=== PATIENT | female | born 1985 | race African-American/Black ===

== ENCOUNTER 2016-11-10 19:16 | Inpatient (IN) | payer MEDICARE, MEDICAID ==
[2016-11-10] MEDS ORDERED: NIFEDIPINE 30 MG TAB.ER.24 PO ONE (20:30)
[2016-11-10 21:03] LABS: HEMOGLOBIN 12.9 g/dL (12.0-15.5); HGB HCT DIFFERENCE -0.3; MEAN CORPUSCULAR HEMOGLOBIN 26.1 pg (27.0-33.4); MEAN CORPUSCULAR VOLUME 79 fl (80-97); RED BLOOD COUNT 4.93 10^6/uL (3.72-5.28); RED CELL DISTRIBUTION WIDTH 15.5 % (11.5-14.0)
[2016-11-10] MEDS ORDERED: DEXTROSE 50%-WATER SYRINGE 12.5 GM/25 ML DOSE IV PRN (21:09)
[2016-11-10] MEDS ORDERED: GLUCAGON,HUMAN RECOMB 1 MG INJ IM PRN (21:09)
[2016-11-10] MEDS ORDERED: DEXTROSE 40% GEL 15 GM TUBE PO PRN (21:09)
[2016-11-10] MEDS ORDERED: DEXTROSE 50%-WATER SYRINGE 25 GM/50 ML DOSE IV PRN (21:09)
[2016-11-10] MEDS ORDERED: DEXTROSE 40% GEL 15 GM TUBE X 2 PO PRN (21:09)
[2016-11-10 21:20] LABS: ALANINE AMINOTRANSFERASE 32 U/L (9-52); ALBUMIN 4.4 g/dL (3.5-5.0); ALKALINE PHOSPHATASE 71 U/L (38-126); ANION GAP 14 (5-19); ASPARTATE AMINO TRANSFERASE 17 U/L (14-36); BILIRUBIN,DIRECT 0.3 mg/dL (0.0-0.4); BILIRUBIN,TOTAL 0.4 mg/dL (0.2-1.3); BLOOD UREA NITROGEN 8 mg/dL (7-20); CALCIUM 10.4 mg/dL (8.4-10.2); CARBON DIOXIDE 22 mmol/L (22-30); CHLORIDE 102 mmol/L (98-107); CREATININE RESULT 0.45 mg/dL (0.52-1.25); GLUCOSE 161 mg/dL (75-110); POTASSIUM 4.3 mmol/L (3.6-5.0); SODIUM 138.1 mmol/L (137-145); TOTAL PROTEIN 7.9 g/dL (6.3-8.2)
[2016-11-10] MEDS: INSULIN GLARGINE,HUM.REC.ANLOG 1,000 UNIT/10 ML UNIT SUBCUT SCH (22:02)
--- NOTE | 2016-11-11 08:13 | EKG REPORT ---
SEVERITY:- NORMAL ECG - SINUS RHYTHM : Confirmed by: Zain Estes MD 11-Nov-2016 08:12:55
--- NOTE | 2016-11-11 09:50 | PDOC PROGRESS REPORT ---
Subjective Subjective:: Pt reports feeling well No vaginal bleeding Physical Exam - Physical Exam Vital Signs: Temp Pulse Resp BP Pulse Ox 98.7 F 93 16 122/80 100 11/11/16 07:31 11/11/16 07:31 11/11/16 07:31 11/11/16 07:31 11/11/16 07:31 Intake & Output 11/10/16 11/11/16 11/12/16 06:59 06:59 06:59 Weight 74.4 kg General appearance: PRESENT: no acute distress, cooperative, well-developed Result Laboratory Results: 11/10/16 20:39 11/10/16 20:39 11/10/16 11/10/16 11/10/16 20:39 20:39 20:39 WBC 6.0 RBC 4.93 Hgb 12.9 Hct 39.0 MCV 79 L MCH 26.1 L MCHC 33.0 RDW 15.5 H Plt Count 391 Sodium 138.1 Potassium 4.3 Chloride 102 Carbon Dioxide 22 Anion Gap 14 BUN 8 Creatinine 0.45 L Est GFR ( Amer) > 60 Est GFR (Non-Af Amer) > 60 Glucose 161 H Calcium 10.4 H Total Bilirubin 0.4 AST 17 ALT 32 Alkaline Phosphatase 71 Total Protein 7.9 Albumin 4.4 TSH 1.40 Assessment & Plan - Diagnosis (1) Diabetes mellitus Qualifiers: Diabetes mellitus type: type 1 Diabetes mellitus complication status: without complication Qualified Code(s): E10.9 - Type 1 diabetes mellitus without complications Is this a current diagnosis for this admission?: Yes (2) Hypertension Qualifiers: Hypertension type: essential hypertension Qualified Code(s): I10 - Essential (primary) hypertension Is this a current diagnosis for this admission?: Yes (3) Qualifiers: Weeks of gestation: 10 weeks Qualified Code(s): Z3A.10 - 10 weeks gestation of Is this a current diagnosis for this admission?: Yes - Time Time Spent with patient: 15-24 minutes Medications reviewed and adjusted accordingly: Yes Anticipated discharge: Home Within: within 48 hours - Will await glucose reading today and make insulin changes this evening
[2016-11-11] MEDS: INSULIN GLARGINE,HUM.REC.ANLOG 1,000 UNIT/10 ML UNIT SUBCUT SCH ×2 (09:53→21:51)
[2016-11-11] MEDS: NIFEDIPINE 30 MG TAB.ER.24 PO SCH (09:54)
[2016-11-11] MEDS: PRENATAL VITAMIN W-O CA NO5/FE FUMARATE/FA CAPSULE PO SCH (09:54)
[2016-11-11] MEDS: INSULIN LISPRO 100 UNIT/ML 3 ML VIAL SUBCUT PRN ×4 (11:01→19:44)
[2016-11-11] MEDS ORDERED: ACETAMINOPHEN 325 MG TABLET ONE (13:40)
[2016-11-11] MEDS ORDERED: ACETAMINOPHEN 325 MG TABLET PO PRN (13:53)
[2016-11-11] MEDS ORDERED: INSULIN GLARGINE,HUM.REC.ANLOG 1,000 UNIT/10 ML UNIT SUBCUT SCH (22:00)
[2016-11-12] MEDS: INSULIN GLARGINE,HUM.REC.ANLOG 1,000 UNIT/10 ML UNIT SUBCUT SCH ×2 (09:30→22:14)
[2016-11-12] MEDS: NIFEDIPINE 30 MG TAB.ER.24 PO SCH (09:31)
[2016-11-12] MEDS: PRENATAL VITAMIN W-O CA NO5/FE FUMARATE/FA CAPSULE PO SCH (09:31)
[2016-11-12] MEDS: INSULIN LISPRO 100 UNIT/ML 3 ML VIAL SUBCUT PRN ×3 (10:53→19:39)
--- NOTE | 2016-11-12 14:34 | PDOC CONSULTATION ---
Consultation Consult Date: 11/12/16 Attending physician:: SHAHEEN OSMAN Consult reason:: help with hyperglycemia History of Present Illness Admission Date/PCP: 11/10/16 19:16 EDENILSON TORO, History of Present Illness: PATODMITRI LUNA is a 31 year old female with a hx of htn and dm who was brought in for improved glucose control. Patient denies any polyuria, polydipsia , and admits to polyphagia but is also approximately 10 weeks . Patient was reported to have a hemoglobin A1c of greater than 14. Patient reports she has been a diabetic since 2011 but has not taken medication for some time. Patient was eating lunch when I see her. She is doing well and has no complaints. Past Medical History Cardiac Medical History: Reports: Hypertension Denies: Pulmonary Embolism, Heart Murmur Pulmonary Medical History: Denies: Asthma, Sleep Apnea, Tuberculosis Neurological Medical History: Denies: Seizures Endocrine Medical History: Reports: Diabetes Mellitus Type 2 Denies: Diabetes Mellitus Type 1, Hyperthyroidism, Hypothyroidism Malignancy Medical History: Denies: Breast Cancer, Cervical Cancer, Ovarian Cancer GI Medical History: Denies: Gastroesophageal Reflux Disease, Hiatal Hernia Musculoskeltal Medical History: Denies: Fibromyalgia Psychiatric Medical History: Denies: Bipolar Disorder, Depression, Post Traumatic Stress Disorder Hematology: Denies: Anemia, Hemophilia, Sickle Cell Disease Infectious Medical History: Denies: HIV Past Surgical History Past Surgical History: Reports: Section Social History Smoking Status: Former Smoker Last Time Smoked: 2009 Frequency of Alcohol Use: None Hx Recreational Drug Use: No Drugs: None Hx Prescription Drug Abuse: No - Advance Directive Resuscitation Status: Full Code Surrogate healthcare decision maker:: Aurora Sharma, sister Family History Family History: DM, Hypertension Parental Family History Reviewed: Yes Children Family History Reviewed: Yes Sibling(s) Family History Reviewed.: Yes Medication/Allergy Home Medications: Vit#96/Ferrous Fum/FA [ Tablet] 1 tab PO DAILY 03/15/14 Lisinopril/Hydrochlorothiazide [Lisinopril-Hctz 20-25 mg Tab] 1 each PO DAILY # 30 tablet 03/28/14 Insulin Glargine,Hum.rec.anlog [Lantus Insulin 100 Unit/mL] 45 units SUBCUT BID 11/10/16 Allergies/Adverse Reactions: No Known Allergies Allergy (Verified 09/11/11 13:08) Review of Systems Constitutional: ABSENT: chills, fever(s), headache(s), weight gain, weight loss Eyes: ABSENT: visual disturbances Ears: ABSENT: hearing changes Cardiovascular: ABSENT: chest pain, dyspnea on exertion, edema, orthropnea, palpitations Respiratory: ABSENT: cough, hemoptysis Gastrointestinal: ABSENT: abdominal pain, constipation, diarrhea, hematemesis, hematochezia, nausea, vomiting Genitourinary: ABSENT: dysuria, hematuria Musculoskeletal: ABSENT: joint swelling Integumentary: ABSENT: rash, wounds Neurological: ABSENT: abnormal gait, abnormal speech, confusion, dizziness, focal weakness, syncope Psychiatric: ABSENT: anxiety, depression, homidical ideation, suicidal ideation Endocrine: ABSENT: cold intolerance, heat intolerance, polydipsia, polyuria Hematologic/Lymphatic: ABSENT: easy bleeding, easy bruising Physical Exam Vital Signs: Temp Pulse Resp BP Pulse Ox 97.4 F 90 16 116/78 99 11/12/16 11:05 11/12/16 11:05 11/12/16 11:05 11/12/16 11:05 11/12/16 11:05 Intake & Output 11/11/16 11/12/16 11/13/16 06:59 06:59 06:59 Intake Total 300 450 Balance 300 450 Weight 74.4 kg General appearance: PRESENT: no acute distress, well-developed, well-nourished Head exam: PRESENT: atraumatic, normocephalic Eye exam: PRESENT: conjunctiva pink, EOMI, PERRLA. ABSENT: scleral icterus Ear exam: PRESENT: normal external ear exam Mouth exam: PRESENT: moist, tongue midline Neck exam: ABSENT: JVD, lymphadenopathy, thyromegaly, tracheal deviation Respiratory exam: PRESENT: clear to auscultation rocky. ABSENT: rales, rhonchi, wheezes Cardiovascular exam: PRESENT: RRR, +S1, +S2. ABSENT: diastolic murmur, gallop, rubs, systolic murmur, tachycardia Pulses: PRESENT: normal carotid pulses Vascular exam: PRESENT: normal capillary refill GI/Abdominal exam: PRESENT: normal bowel sounds, soft. ABSENT: distended, firm , guarding, mass, Gasca's sign, organolmegaly, rebound, rigid, tenderness Rectal exam: PRESENT: deferred Extremities exam: PRESENT: full ROM. ABSENT: calf tenderness, clubbing, pedal edema Neurological exam: PRESENT: alert, awake, oriented to person, oriented to place , oriented to time, oriented to situation, CN II-XII grossly intact. ABSENT: motor sensory deficit Psychiatric exam: PRESENT: appropriate affect, normal mood. ABSENT: homicidal ideation, suicidal ideation Skin exam: PRESENT: dry, intact, warm. ABSENT: cyanosis, rash Results Laboratory Results: 11/10/16 20:39 11/10/16 20:39 11/10/16 11/10/16 11/11/16 20:39 20:39 15:14 Hgb 12.9 MCV 79 L POC Glucose 272 H TSH 1.40 11/11/16 11/11/16 11/12/16 17:00 18:55 06:28 Hgb MCV POC Glucose 199 H 231 H 100 TSH 11/12/16 11/12/16 10:40 11:53 Hgb MCV POC Glucose 183 H 148 H TSH Assessment & Plan - Diagnosis (1) Diabetes mellitus Qualifiers: Diabetes mellitus type: type 2 Diabetes mellitus complication status: without complication Diabetes mellitus longterm insulin use: with longterm use Qualified Code(s): E11.9 - Type 2 diabetes mellitus without complications ; Z79.4 - [facility] (current) use of insulin Is this a current diagnosis for this admission?: Yes Plan: Patient is a type II diabetic with history of use of insulin. At this time, I defer to the A1c goal to the LASTING ROOM SUPERVISOR team. But if permitted in this phase of , patient may benefit from the addition of metformin 500 mg p.o. twice daily. Additionally, patient would likely benefit from a carb controlled diet, but again due to her considerations, and defer the ultimate decision of her diet to her primary team. Agree with the current Lantus regimen, as patient's fasting blood sugar was 100 this morning, and this appears to be much improved. Dietary has been consulted for this patient. (2) Hypertension Qualifiers: Hypertension type: essential hypertension Qualified Code(s): I10 - Essential (primary) hypertension Is this a current diagnosis for this admission?: Yes Plan: 2000 mg sodium restriction, avoid caffeinated beverages. Patient's blood pressure is currently well controlled on Procardia 60 mg p.o. daily. Agree with this. Defer ultimate control of her hypertension to the primary OB team, particularly as her gestation progresses for fears of eclampsia and preeclampsia. (3) Qualifiers: Weeks of gestation: 10 weeks Qualified Code(s): Z3A.10 - 10 weeks gestation of Is this a current diagnosis for this admission?: Yes Plan: Patient is on a vitamin. Defer expectant care to the primary team. - Time Time Spent: 30 to 50 Minutes Medications reviewed and adjusted accordingly: Yes Anticipated discharge: Home - Plan Summary Plan Summary: Overall, agree with current management from primary team. Appreciate this interesting consult and will sign off and available for reconsultation if necessary.
--- NOTE | 2016-11-12 15:46 | RADIOLOGY REPORT (SQ) ---
EXAM DESCRIPTION: U/S [id number] TRNABD 1GES W/ODOP COMPLETED DATE/TIME: 11/10/2016 11:22 pm REASON FOR STUDY: Viability COMPARISON: None. TECHNIQUE: Transabdominal static and realtime grayscale images acquired of the pelvis. Additional se lected spectral and color Doppler images recorded. All images stored on PACs. bHCG: Not available LIMITATIONS: None. FINDINGS: FETUS: Living intrauterine . EGA: 10 weeks 2 days GREGORIO: 06/06/2017 FHR: 178 beats per minute. SUBCHORIONIC BLEED: No SIZE OF BLEED: Not applicable. UTERUS: No masses. No anomalies. Uterus is 10.5 x 7.6 x 7.1 cm in length. CERVICAL LENGTH: Not well seen Closed. RIGHT ADNEXA: Not well seen due to adnexal bowel gas. Right ovary not visualized LEFT ADNEXA: Normal ovary with normal vascular flow. Left ovary 4.9 x 3.4 x 2.9 cm in size, with a 2 .9 x 2.8 cm simple cyst, possibly the corpus luteum. No adnexal free fluid.No adnexal masses. FREE FLUID: None. OTHER: No other significant finding. IMPRESSION: LIVING INTRAUTERINE . EGA 10 weeks 2 days, embryo heart rate 178 beats per minute Trimester of : First - 0 to 13 weeks. TECHNICAL DOCUMENTATION: JOB ID: [id number] [employer]- All Rights Reserved
--- NOTE | 2016-11-12 16:57 | PDOC PROGRESS REPORT ---
Subjective Progress Note for:: 11/12/16 Subjective:: doing well. reports eating both rice and corn for lunch. Dietary at desk and will be counseling pt on proper diabetic diet. Denies REGALADO/blurry vision/RUQ pain. Denies polyuria/polydypsia. Physical Exam - Physical Exam Vital Signs: Temp Pulse Resp BP Pulse Ox 97.4 F 90 16 116/78 99 11/12/16 11:05 11/12/16 11:05 11/12/16 11:05 11/12/16 11:05 11/12/16 11:05 Intake & Output 11/11/16 11/12/16 11/13/16 06:59 06:59 06:59 Intake Total 300 1050 Balance 300 1050 Weight 74.4 kg General appearance: PRESENT: no acute distress, well-developed, well-nourished Respiratory exam: PRESENT: clear to auscultation rocky, symmetrical, unlabored. ABSENT: rales, retraction Cardiovascular exam: PRESENT: RRR. ABSENT: diastolic murmur, rubs, systolic murmur Vascular exam: PRESENT: normal capillary refill GI/Abdominal exam: PRESENT: normal bowel sounds, soft. ABSENT: distended, guarding, mass, organolmegaly, rebound, tenderness Rectal exam: PRESENT: deferred Extremities exam: PRESENT: full ROM. ABSENT: calf tenderness, clubbing, pedal edema Musculoskeletal exam: PRESENT: ambulatory Neurological exam: PRESENT: alert, awake, oriented to person, oriented to place , oriented to time, oriented to situation, CN II-XII grossly intact. ABSENT: motor sensory deficit Psychiatric exam: PRESENT: appropriate affect, normal mood. ABSENT: homicidal ideation, suicidal ideation Skin exam: PRESENT: abrasion Result Laboratory Results: 11/10/16 20:39 11/10/16 20:39 Impressions: Obstetrics Ultrasound 11/10/16 00:00 IMPRESSION: LIVING INTRAUTERINE . EGA 10 weeks 2 days, embryo heart rate 178 beats per minute Trimester of : First - 0 to 13 weeks. 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 Reports that a provider at the [facility] told her to stop the insulin approx 4wks ago. However, Hb A1c was 14 in the office on 11/01/2016 which indicates likely poor control even prior to this. Due to poor control of Accuchecks Dr. Cordoba increased her Lantus to 50 units BID late last evening which improved her fasting accucheck this am to 100. However this is still not goal. REview of accuchecks and orders reveals continued very very poor control of postparandials and continued significant need for sliding scale coverage with insulin in addition to her scheduled lantus dosing. Dr. Mcneil consulted this am since pt is very poorly controlled and Lantus had to be increased. Very Very much appreciate assistance with this patient. Hb A1c of 14 in is associated with , Miscarriage, Significant congenital malformations including cardiac anomalies. It is imperative that improved control be achieved soon to help in prevention of these complications. Therefore, it is certainly not advisable to discharge patient at this time. Also review of orders reveals low sodium diet - However, this diet has too many carbs and diet changed today to Low Sodium with 1800 ADA diet. Trash Collector consult also requested to help with patient education. Goal for accuchecks in is: fasting less than 90 2 hr PP less than 120 Plan for continued adjustment today: Diet changed to diabetic diet Dr. Mcneil Consulted with Hospitalist service Continue Lantus and SSI, Adjust lantus as needed Patient education Start Oral Hypoglycemic - Glyburide 2.5mg po BID (will likely need to be increased for improved control) Reviewed with pt that do not expect tight control of Accuchecks prior to discharge but definitely need improved control to prevent some of the devastating effects on the fetus as noted above. FHT daily. Will take US over later to check FHTs. Last FHTs done with US on at admission. Today fasting 100 2hr pp breakfast 183, 2 units SSI given and repeat 143 2hr pp lunch 234, 5 units SSI given Will need MFM consult with ECHO after discharge As noted this is certainly too far away from control and several adjustments today to help with improved control. If improved control tomorrow or Tuesday may be able to discharge then. In short, it is NOT medically recommended from an obstetric standpoint to discharge this patient at this time. (2) Hypertension Qualifiers: Hypertension type: essential hypertension Qualified Code(s): I10 - Essential (primary) hypertension Is this a current diagnosis for this admission?: Yes Plan: Pt is currently on procardia XL 60mg daily with significant improvement in her BPs. However, review of records notes no baseline labs done: CBC done, CMP to be repeated with uric acid, LDH 24 hr UTP to be started - for baseline value. Reviewed risk of PreE later in with patient and need for baseline value Plan for day: Labs and continue with Procardia XL 60mg po daily Significant improvement in control no medication adjustment at this time. (3) Qualifiers: Weeks of gestation: 10 weeks Qualified Code(s): Z3A.10 - 10 weeks gestation of Is this a current diagnosis for this admission?: Yes Plan: LMP 08/30/2016 and ED 06/06/2017 US at 8+6ega on 11/01/2016 - - - GREGORIO 06/07/2017 Final GREGORIO 06/06/2017 Current ega is 10+4ega, 1st trimester (4) Delivery by elective caesarean section Is this a current diagnosis for this admission?: Yes Plan: H/o C/S x 2. needs Repeat LTCS at the time delivery is required. - Time Time Spent with patient: 35 or more minutes Critical Time spent with patient: Less than 15 minutes Medications reviewed and adjusted accordingly: Yes Anticipated discharge: Home Within: within 48 hours - Inpatient Certification Based on my medical assessment, after consideration of the patient's comorbidities, presenting symptoms, or acuity I expect that the services needed warrant INPATIENT care.: Yes I certify that my determination is in accordance with my understanding of Medicare's requirements for reasonable and necessary INPATIENT services [42 CFR 412.3e].: Yes Medical Necessity: Failure to Improve With Outpatient Therapy, Significant Comorbidiites Make Outpatient Treatment Too Risky, Need Close Monitoring Due to Risk of Patient Decompensation Post Hospital Care: D/C Sawsmith Documentation - Plan Summary Plan Summary: Needs service planner as patient has significant social issues which complicate her care including impending court dates.
[2016-11-12] MEDS ORDERED: GLYBURIDE 2.5 MG TABLET PO SCH (17:00)
[2016-11-12 17:05] LABS: ALANINE AMINOTRANSFERASE 32 U/L (9-52); ALBUMIN 4.3 g/dL (3.5-5.0); ALKALINE PHOSPHATASE 64 U/L (38-126); ANION GAP 14 (5-19); ASPARTATE AMINO TRANSFERASE 18 U/L (14-36); BILIRUBIN,DIRECT 0.4 mg/dL (0.0-0.4); BILIRUBIN,TOTAL 0.5 mg/dL (0.2-1.3); BLOOD UREA NITROGEN 16 mg/dL (7-20); CALCIUM 10.2 mg/dL (8.4-10.2); CARBON DIOXIDE 19 mmol/L (22-30); CHLORIDE 99 mmol/L (98-107); CREATININE RESULT 0.69 mg/dL (0.52-1.25); GLUCOSE 210 mg/dL (75-110); POTASSIUM 4.4 mmol/L (3.6-5.0); SODIUM 132.2 mmol/L (137-145); TOTAL PROTEIN 7.8 g/dL (6.3-8.2); URIC ACID 3.5 mg/dL (2.5-6.2)
[2016-11-13] MEDS ORDERED: GLYBURIDE 2.5 MG TABLET PO SCH ×2 (08:00→22:00)
[2016-11-13] MEDS: NIFEDIPINE 30 MG TAB.ER.24 PO SCH (09:31)
[2016-11-13] MEDS: PRENATAL VITAMIN W-O CA NO5/FE FUMARATE/FA CAPSULE PO SCH (09:32)
--- NOTE | 2016-11-13 10:33 | PDOC DISCHARGE SUMMARY ---
General - Admit/Disc Date/PCP Admission Date/Primary Care Provider: The pt was admitted to begin insulin during her . She stated that she had stopped her medication when she found out that she was and had very high levels in our office. Discharge Date: 11/13/16 - Additional Information Resuscitation Status: Full Code Discharge Diet: Diabetic Discharge Activity: Balance Activity w/Rest, Slowly Increase Activity Home Medications: Vit#96/Ferrous Fum/FA [ Tablet] 1 tab PO DAILY 03/15/14 Glyburide [Diabeta 2.5 mg Tablet] 2.5 mg PO QAM #30 tablet 11/13/16 Glyburide [Diabeta 2.5 mg Tablet] 2.5 mg PO QHS #30 tablet 11/13/16 Insulin Glargine,Hum.rec.anlog [Lantus Insulin 100 Unit/1 ml 10 ml] 50 unit SUBCUT Q12 #60 unit 11/13/16 Nifedipine [Procardia XL 30 mg Tablet] 60 mg PO DAILY #30 tab.er.24 11/13/16 History of Present Illness Patient complains of: High blood sugars at home. History of Present Illness: LUCY LUNA is a 31 year old female Hospital Course Hospital Course: She was admitted and started on lantus insulin as well as an oral agent. Her sugars now look much better and she has received diabetic and dietary teaching. She is now ready to go home. Physical Exam - Physical Exam Vital Signs: Temp Pulse Resp BP Pulse Ox 98.4 F 68 18 125/89 H 99 11/13/16 07:50 11/13/16 07:50 11/13/16 07:50 11/13/16 07:50 11/13/16 07:50 Intake & Output 11/12/16 11/13/16 11/14/16 06:59 06:59 06:59 Intake Total 300 1350 Balance 300 1350 General appearance: PRESENT: no acute distress, well-developed, well-nourished Result Laboratory Results: 11/10/16 20:39 11/12/16 16:30 11/12/16 16:30 Sodium 132.2 L Potassium 4.4 Chloride 99 Carbon Dioxide 19 L Anion Gap 14 BUN 16 Creatinine 0.69 Est GFR ( Amer) > 60 Est GFR (Non-Af Amer) > 60 Glucose 210 H Uric Acid 3.5 Calcium 10.2 Total Bilirubin 0.5 AST 18 ALT 32 Alkaline Phosphatase 64 Total Protein 7.8 Albumin 4.3 Impressions: Obstetrics Ultrasound 11/10/16 00:00 IMPRESSION: LIVING INTRAUTERINE . EGA 10 weeks 2 days, embryo heart rate 178 beats per minute Trimester of : First - 0 to 13 weeks. Plan Discharge Plan: She will be sent home on the diabetes and bp meds as in the hospital. She has followup with high school music teacher on the . They will likely change her doses to their practice patterns. Her blood sugars are much improved. Time Spent: Greater than 30 Minutes
[2016-11-13] MEDS: INSULIN GLARGINE,HUM.REC.ANLOG 1,000 UNIT/10 ML UNIT SUBCUT SCH (11:08)
[2016-11-13] MEDS: INSULIN LISPRO 100 UNIT/ML 3 ML VIAL SUBCUT PRN (20:00)
[2016-11-13 20:06] VITALS: BP 137/88
== END 2016-11-13 21:04 | disposition home or self-care (01) | DRG 781 ==
LOC: 2N 19:16
PROVIDERS: ADMIT Specialist; ATTEND Specialist
DX: O24.111 Pre-existing type 2 diabetes mellitus, in pregnancy, first trimester (principal); O10.011 Pre-existing essential hypertension complicating pregnancy, first trimester; E11.9 Type 2 diabetes mellitus without complications; O34.211 Maternal care for low transverse scar from previous cesarean delivery; Z79.4 Long term (current) use of insulin; Z87.891 Personal history of nicotine dependence; Z83.3 Family history of diabetes mellitus; Z82.49 Family history of ischemic heart disease and other diseases of the circulatory system; Z91.14 Patient's other noncompliance with medication regimen; Z3A.10 10 weeks gestation of pregnancy
CPT/HCPCS: 36415; 76801; 80053; 82962; 83615; 84156; 84443; 84550; 85027; 93005; 93010; J1815; J3490

== ENCOUNTER 2017-02-20 02:46 | Outpatient (CLI) | payer MEDICARE, MEDICAID ==
[2017-02-20 03:34] LABS: APPEARANCE,URINE CLEAR; BILIRUBIN,URINE NEGATIVE (NEGATIVE); GLUCOSE, URINE >=500 mg/dL (NEGATIVE); KETONES,URINE 20 mg/dL (NEGATIVE); LEUKOCYTE ESTERASE,URINE NEGATIVE (NEGATIVE); NITRITE,URINE NEGATIVE (NEGATIVE); PROTEIN,URINE NEGATIVE (NEGATIVE); URINE SPECIFIC GRAVITY 1.029; UROBILINOGEN,URINE NEGATIVE mg/dL (<2.0)
[2017-02-20 04:28] LABS: URINE BARBITURATES SCREEN NEGATIVE; URINE METHADONE SCREEN NEGATIVE; URINE OPIATES LOW NEGATIVE; URINE PHENCYCLIDINE SCREEN NEGATIVE
== END 2017-02-20 04:35 | disposition home or self-care (01) ==
LOC: LC 02:46
PROVIDERS: ATTEND Obstetrics & Gynecology
PROC: 4A1HXCZ Monitoring of Products of Conception, Cardiac Rate, External Approach (ICD-10-PCS; principal; 2017-02-20)
DX: O47.02 False labor before 37 completed weeks of gestation, second trimester (principal); Z3A.24 24 weeks gestation of pregnancy
CPT/HCPCS: 80307; 81001

== ENCOUNTER 2017-05-09 12:19 | Outpatient (CLI) | payer MEDICARE, MEDICAID ==
[2017-05-09 13:27] LABS: AMORPHOUS SEDIMENT,URINE TRACE /HPF; APPEARANCE,URINE TURBID; BILIRUBIN,URINE NEGATIVE (NEGATIVE); COLOR,URINE YELLOW; GLUCOSE, URINE 50 mg/dL (NEGATIVE); KETONES,URINE NEGATIVE (NEGATIVE); LEUKOCYTE ESTERASE,URINE MODERATE (NEGATIVE); NITRITE,URINE NEGATIVE (NEGATIVE); PROTEIN,URINE 100 mg/dL (NEGATIVE); URINE SPECIFIC GRAVITY 1.015
[2017-05-09 13:28] LABS: ABSOLUTE EOSINOPHILS # (AUTO) 0.1 10^3/uL (0.0-0.6); ABSOLUTE LYMPHOCYTES (AUTO) 1.7 10^3/uL (0.5-4.7); ABSOLUTE MONOCYTES (AUTO) 0.4 10^3/uL (0.1-1.4); ABSOLUTE NEUT (AUTO) 4.8 10^3/uL (1.7-8.2); BASOPHILS % (AUTO) 0.5 % (0-2); EOSINOPHILS % (AUTO) 0.9 % (0-6); HEMATOCRIT 38.2 % (36.0-47.0); HEMOGLOBIN 12.5 g/dL (12.0-15.5); LYMPHOCYTES % (AUTO) 24.4 % (13-45); MEAN CORPUSCULAR HEMOGLOBIN 24.3 pg (27.0-33.4); MEAN CORPUSCULAR HGB CONC 32.8 g/dL (32.0-36.0); MEAN CORPUSCULAR VOLUME 74 fl (80-97); MONOCYTES % (AUTO) 5.8 % (3-13); PLATELET COUNT 433 10^3/uL (150-450); RED BLOOD COUNT 5.15 10^6/uL (3.72-5.28); RED CELL DISTRIBUTION WIDTH 16.6 % (11.5-14.0); SEGMENTED NEUTROPHILS % (AUTO) 68.4 % (42-78); TOTAL CELLS COUNTED % (AUTO) 100 %; WHITE BLOOD COUNT 7.1 10^3/uL (4.0-10.5)
[2017-05-09 13:35] LABS: UR PRO/CREAT RATIO RESULT 0.8 mg/mg (0.0-0.2); URINE CREATININE 106.9 mg/dL (16-327)
[2017-05-09 13:41] LABS: URINE AMPHETAMINES SCREEN NEGATIVE; URINE BARBITURATES SCREEN NEGATIVE; URINE BENZODIAZEPINES SCREEN NEGATIVE; URINE COCAINE SCREEN NEGATIVE; URINE MARIJUANA (THC) SCREEN NEGATIVE; URINE METHADONE SCREEN NEGATIVE; URINE PHENCYCLIDINE SCREEN NEGATIVE
[2017-05-09 13:49] LABS: ALANINE AMINOTRANSFERASE 25 U/L (9-52); ALBUMIN 3.7 g/dL (3.5-5.0); ALKALINE PHOSPHATASE 176 U/L (38-126); ANION GAP 13 (5-19); ASPARTATE AMINO TRANSFERASE 18 U/L (14-36); BILIRUBIN,DIRECT 0.3 mg/dL (0.0-0.4); BILIRUBIN,TOTAL 0.4 mg/dL (0.2-1.3); BLOOD UREA NITROGEN 9 mg/dL (7-20); CALCIUM 9.8 mg/dL (8.4-10.2); CARBON DIOXIDE 20 mmol/L (22-30); CHLORIDE 106 mmol/L (98-107); GLUCOSE 58 mg/dL (75-110); LDH 381 U/L (313-618); POTASSIUM 3.6 mmol/L (3.6-5.0); SODIUM 138.7 mmol/L (137-145); TOTAL PROTEIN 7.1 g/dL (6.3-8.2); URIC ACID 4.2 mg/dL (2.5-6.2)
--- NOTE | 2017-05-09 14:23 | PDOC PROGRESS REPORT ---
Subjective Progress Note for:: 05/09/17 Subjective:: IUFD at 35+6ega, PreE, H/o C/S x 2, Type II DM, HTN Reason For Visit: LABOR CHECK Physical Exam - Physical Exam General appearance: PRESENT: no acute distress, well-developed, well-nourished Respiratory exam: PRESENT: clear to auscultation rocky, symmetrical, unlabored Cardiovascular exam: PRESENT: RRR. ABSENT: diastolic murmur, rubs, systolic murmur Pulses: PRESENT: normal dorsalis pedis pul, +2 pedal pulses bilateral GI/Abdominal exam: PRESENT: normal bowel sounds, soft. ABSENT: distended, guarding, mass, organolmegaly, rebound, tenderness Rectal exam: PRESENT: deferred Neurological exam: PRESENT: alert, awake, oriented to person, oriented to place , oriented to time, oriented to situation, CN II-XII grossly intact. ABSENT: motor sensory deficit Psychiatric exam: PRESENT: appropriate affect, normal mood. ABSENT: homicidal ideation, suicidal ideation Skin exam: PRESENT: dry, intact, warm. ABSENT: cyanosis, rash Result Laboratory Results: 05/09/17 13:16 05/09/17 13:16 05/09/17 05/09/17 05/09/17 12:15 13:16 13:16 WBC 7.1 RBC 5.15 Hgb 12.5 Hct 38.2 MCV 74 L MCH 24.3 L MCHC 32.8 RDW 16.6 H Plt Count 433 Seg Neutrophils % 68.4 Lymphocytes % 24.4 Monocytes % 5.8 Eosinophils % 0.9 Basophils % 0.5 Absolute Neutrophils 4.8 Absolute Lymphocytes 1.7 Absolute Monocytes 0.4 Absolute Eosinophils 0.1 Absolute Basophils 0.0 Sodium Potassium Chloride Carbon Dioxide Anion Gap BUN Creatinine Est GFR ( Amer) Est GFR (Non-Af Amer) Glucose Uric Acid Calcium Total Bilirubin AST ALT Alkaline Phosphatase Total Protein Albumin Urine Color YELLOW Urine Appearance TURBID Urine pH 6.0 Ur Specific [place] 1.015 Urine Protein 100 H Urine Glucose (UA) 50 H Urine Ketones NEGATIVE Urine Blood NEGATIVE Urine Nitrite NEGATIVE Ur Leukocyte Esterase MODERATE H Urine WBC (Auto) 150 Urine RBC (Auto) 13 Blood Type A POSITIVE Antibody Screen NEGATIVE 05/09/17 13:16 WBC RBC Hgb Hct MCV MCH MCHC RDW Plt Count Seg Neutrophils % Lymphocytes % Monocytes % Eosinophils % Basophils % Absolute Neutrophils Absolute Lymphocytes Absolute Monocytes Absolute Eosinophils Absolute Basophils Sodium 138.7 Potassium 3.6 Chloride 106 Carbon Dioxide 20 L Anion Gap 13 BUN 9 Creatinine 0.52 Est GFR ( Amer) > 60 Est GFR (Non-Af Amer) > 60 Glucose 58 L Uric Acid 4.2 Calcium 9.8 Total Bilirubin 0.4 AST 18 ALT 25 Alkaline Phosphatase 176 H Total Protein 7.1 Albumin 3.7 Urine Color Urine Appearance Urine pH Ur Specific [place] Urine Protein Urine Glucose (UA) Urine Ketones Urine Blood Urine Nitrite Ur Leukocyte Esterase Urine WBC (Auto) Urine RBC (Auto) Blood Type Antibody Screen Assessment & Plan - Diagnosis (1) demise, greater than 22 weeks, antepartum, single gestation Is this a current diagnosis for this admission?: Yes Plan: IUFD at 35+6ega. Reviewed with pt that recommend delivery. Cvx /-2 and favorable for IOL. However, pt with h/o C/S x [address] Aponte regarding cvx and hx and recommend transfer to [facility] for delivery. However, patient left AMA stating she has to care for her kids and her Aunt will take her to [facility] for delivery this pm. Called Dr. Harris at [facility] due to patient may present there to give them a heads up. [facility] is aware of this patient with DM, Cardiac Anomaly, noncompliance, h/o c/s x 2, CHTN with poss superimpsed PreE. BPs mild range. Labs obtained and attempted to reiterate with patient that risk of for her if she does not present for delivery LYDIA. Reviewed risk of Sepsis, , cardiomyopathy, DIC, hemorrhage, Intubation, DVT/PE, stroke etc. Pt reports understanding of risks and leaves AMA anyway. - Time Time Spent with patient: 35 or more minutes Medications reviewed and adjusted accordingly: Yes Anticipated discharge: [facility] Within: within 24 hours - Inpatient Certification Based on my medical assessment, after consideration of the patient's comorbidities, presenting symptoms, or acuity I expect that the services needed warrant INPATIENT care.: Yes I certify that my determination is in accordance with my understanding of Medicare's requirements for reasonable and necessary INPATIENT services [42 CFR 412.3e].: Yes Medical Necessity: Failure to Improve With Outpatient Therapy, Need Close Monitoring Due to Risk of Patient Decompensation, Need for Surgery, Risk of Complication if Not Cared For in Hospital 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
== END 2017-05-09 13:58 | disposition left against medical advice (07) ==
LOC: LC 12:19
PROVIDERS: ATTEND Student in an Organized Health Care Education/Training Program
PROC: 4A1HXCZ Monitoring of Products of Conception, Cardiac Rate, External Approach (ICD-10-PCS; principal; 2017-05-09)
DX: O36.4XX0 Maternal care for intrauterine death, not applicable or unspecified (principal); O11.3 Pre-existing hypertension with pre-eclampsia, third trimester; O24.913 Unspecified diabetes mellitus in pregnancy, third trimester; Z79.4 Long term (current) use of insulin; O34.219 Maternal care for unspecified type scar from previous cesarean delivery; Z3A.35 35 weeks gestation of pregnancy; Z91.19 Patient's noncompliance with other medical treatment and regimen
CPT/HCPCS: 36415; 80053; 80307; 81001; 82570; 82962; 83036; 83615; 84156; 84550; 85025; 86850; 86900; 86901

== ENCOUNTER → 2017-11-14 | Outpatient (CLI) | payer MEDICARE, MEDICAID ==
[2017-11-14 12:29] LABS: ABSOLUTE EOSINOPHILS # (AUTO) 0.2 10^3/uL (0.0-0.6); ABSOLUTE LYMPHOCYTES (AUTO) 1.9 10^3/uL (0.5-4.7); ABSOLUTE MONOCYTES (AUTO) 0.4 10^3/uL (0.1-1.4); ABSOLUTE NEUT (AUTO) 3.3 10^3/uL (1.7-8.2); BASOPHILS % (AUTO) 0.7 % (0-2); EOSINOPHILS % (AUTO) 4.1 % (0-6); HEMATOCRIT 39.6 % (36.0-47.0); LYMPHOCYTES % (AUTO) 32.3 % (13-45); MEAN CORPUSCULAR HEMOGLOBIN 24.7 pg (27.0-33.4); MEAN CORPUSCULAR HGB CONC 32.9 g/dL (32.0-36.0); MEAN CORPUSCULAR VOLUME 75 fl (80-97); MONOCYTES % (AUTO) 6.9 % (3-13); PLATELET COUNT 459 10^3/uL (150-450); RED BLOOD COUNT 5.27 10^6/uL (3.72-5.28); RED CELL DISTRIBUTION WIDTH 17.6 % (11.5-14.0); TOTAL CELLS COUNTED % (AUTO) 100 %; WHITE BLOOD COUNT 5.9 10^3/uL (4.0-10.5)
[2017-11-14 13:09] LABS: ALANINE AMINOTRANSFERASE 17 U/L (9-52); ALBUMIN 4.4 g/dL (3.5-5.0); ALKALINE PHOSPHATASE 102 U/L (38-126); ANION GAP 17 (5-19); ASPARTATE AMINO TRANSFERASE 19 U/L (14-36); BILIRUBIN,DIRECT 0.3 mg/dL (0.0-0.4); BILIRUBIN,TOTAL 0.7 mg/dL (0.2-1.3); BLOOD UREA NITROGEN 12 mg/dL (7-20); CALCIUM 9.6 mg/dL (8.4-10.2); CARBON DIOXIDE 19 mmol/L (22-30); CHLORIDE 102 mmol/L (98-107); GLUCOSE 221 mg/dL (75-110); POTASSIUM 4.6 mmol/L (3.6-5.0); SODIUM 137.8 mmol/L (137-145); TOTAL PROTEIN 8.4 g/dL (6.3-8.2)
[2017-11-15 16:40] LABS: CREATININE URINE 171.7 mg/dL (Not Estab.); MICROALBUMIN URINE 302.6 ug/mL (Not Estab.)
== END ==
LOC: OD 11:07
PROVIDERS: ATTEND Family Medicine Geriatric Medicine
DX: E11.40 Type 2 diabetes mellitus with diabetic neuropathy, unspecified (principal); I10 Essential (primary) hypertension; E78.5 Hyperlipidemia, unspecified; E66.3 Overweight
CPT/HCPCS: 36415; 80053; 82043; 82570; 83036; 84443; 85025

== ENCOUNTER 2019-07-04 01:53 | Inpatient (IN) | payer MEDICARE, MEDICAID ==
[2019-07-04] MEDS ORDERED: CEFAZOLIN SODIUM 2 GM in DEXTROSE 5%-WATER 100 ML IV PRN (07:15)
[2019-07-04] MEDS ORDERED: RINGERS SOLUTION,LACTATED 1,000 ML IV ONE ×2 (08:00→19:45)
[2019-07-04 08:02] LABS: ABSOLUTE EOSINOPHILS # (AUTO) 0.1 10^3/uL (0.0-0.6); ABSOLUTE LYMPHOCYTES (AUTO) 1.5 10^3/uL (0.5-4.7); ABSOLUTE MONOCYTES (AUTO) 0.3 10^3/uL (0.1-1.4); ABSOLUTE NEUT (AUTO) 2.4 10^3/uL (1.7-8.2); BASOPHILS % (AUTO) 0.7 % (0-2); EOSINOPHILS % (AUTO) 2.3 % (0-6); HEMATOCRIT 33.4 % (36.0-47.0); HEMOGLOBIN 11.4 g/dL (12.0-15.5); LYMPHOCYTES % (AUTO) 34.7 % (13-45); MEAN CORPUSCULAR HEMOGLOBIN 26.1 pg (27.0-33.4); MEAN CORPUSCULAR VOLUME 77 fl (80-97); MONOCYTES % (AUTO) 7.6 % (3-13); PLATELET COUNT 341 10^3/uL (150-450); RED BLOOD COUNT 4.36 10^6/uL (3.72-5.28); RED CELL DISTRIBUTION WIDTH 15.2 % (11.5-14.0); SEGMENTED NEUTROPHILS % (AUTO) 54.7 % (42-78); TOTAL CELLS COUNTED % (AUTO) 100 %; WHITE BLOOD COUNT 4.4 10^3/uL (4.0-10.5)
[2019-07-04] MEDS ORDERED: LABETALOL HCL INJ 20 MG/4 ML DISP.SYRIN IV ONE ×2 (08:03→08:30)
[2019-07-04 08:17] LABS: APPEARANCE,URINE CLOUDY; BILIRUBIN,URINE NEGATIVE (NEGATIVE); COLOR,URINE YELLOW; GLUCOSE, URINE >=500 mg/dL (NEGATIVE); KETONES,URINE 20 mg/dL (NEGATIVE); LEUKOCYTE ESTERASE,URINE NEGATIVE (NEGATIVE); NITRITE,URINE POSITIVE (NEGATIVE); PROTEIN,URINE 30 mg/dL (NEGATIVE); URINE SPECIFIC GRAVITY 1.028; UROBILINOGEN,URINE NEGATIVE mg/dL (<2.0)
[2019-07-04 08:25] LABS: URINE AMPHETAMINES SCREEN NEGATIVE; URINE BARBITURATES SCREEN NEGATIVE; URINE BENZODIAZEPINES SCREEN NEGATIVE; URINE COCAINE SCREEN NEGATIVE; URINE MARIJUANA (THC) SCREEN NEGATIVE; URINE METHADONE SCREEN NEGATIVE; URINE PHENCYCLIDINE SCREEN NEGATIVE
[2019-07-04] MEDS ORDERED: KETOROLAC TROMETHAMINE INJ/PF 30 MG/1 ML SDV ONE (09:22)
[2019-07-04] MEDS ORDERED: OXYTOCIN 10 UNIT/ML VIAL ONE (09:22)
[2019-07-04] MEDS ORDERED: EPHEDRINE SULFATE INJ 50 MG/1 ML AMPULE ONE (09:23)
[2019-07-04] MEDS ORDERED: ACETAMINOPHEN 1,000 MG/100 ML RTUPB IV ONE (09:23)
[2019-07-04] MEDS ORDERED: ONDANSETRON HCL INJ/PF 4 MG/2 ML SDV ONE (09:23)
[2019-07-04] MEDS ORDERED: FENTANYL CITRATE INJ/PF 100 MCG/2 ML AMPUL ONE (09:23)
[2019-07-04] MEDS ORDERED: OXYTOCIN/NORMAL SALINE 20 UNIT/1,000 ML RTUINJ ONE (09:23)
[2019-07-04] MEDS ORDERED: MIDAZOLAM 2 MG/2 ML INJ ONE (09:23)
[2019-07-04] MEDS ORDERED: HYDROMORPHONE HCL INJ/PF 2 MG/ML AMPULE ONE (09:24)
[2019-07-04] MEDS ORDERED: PHENYLEPHRINE HCL INJ/PF 10 MG/1 ML SDV ONE (09:24)
[2019-07-04] MEDS ORDERED: MORPHINE SULFATE 10 MG/ML INJ IV PRN (10:32)
[2019-07-04] MEDS ORDERED: FENTANYL CITRATE INJ/PF 100 MCG/2 ML AMPUL IV PRN ×3 (10:32)
[2019-07-04] MEDS ORDERED: ONDANSETRON HCL INJ/PF 4 MG/2 ML SDV IV PRN ×2 (10:32→13:31)
[2019-07-04] MEDS ORDERED: PROMETHAZINE HCL INJ 25 MG/1 ML VIAL IV PRN ×3 (10:32→10:50)
[2019-07-04] MEDS ORDERED: MEPERIDINE HCL/PF INJ 25 MG/1 ML DISP.SYRIN IV PRN (10:32)
[2019-07-04] MEDS ORDERED: DIPHENHYDRAMINE HCL 50 MG/ML VIAL IV PRN (10:32)
[2019-07-04] MEDS ORDERED: OXYCODONE-ACETAMINOPHEN 5-325 MG TABLET PO PRN ×6 (10:32→13:30)
[2019-07-04] MEDS ORDERED: MEASLES,MUMPS&RUBELLA VACC/PF 0.5 ML VIAL SUBCUT PRN ×2 (10:50→13:30)
[2019-07-04] MEDS ORDERED: ACETAMINOPHEN 325 MG TABLET PO PRN ×2 (10:50→13:30)
[2019-07-04] MEDS ORDERED: DIPH/PERTUSS(ACELL)/TETANUS VAC/PF 0.5 ML SYR (>=10YO) IM PRN ×2 (10:50→13:30)
[2019-07-04] MEDS ORDERED: ACETAMINOPHEN 1,000 MG/100 ML RTUPB IV PRN (10:50)
[2019-07-04] MEDS ORDERED: SIMETHICONE 80 MG TAB.CHEW PO PRN ×2 (10:50→13:30)
[2019-07-04] MEDS ORDERED: HYDROMORPHONE HCL INJ/PF 2 MG/ML AMPULE IV PRN ×2 (10:50→13:30)
[2019-07-04] MEDS ORDERED: OXYTOCIN/NORMAL SALINE 20 UNIT/1,000 ML RTUINJ IV PRN (10:50)
--- NOTE | 2019-07-04 11:02 | PDOC DELIVERY SUMMARY ---
Delivery Summary - Maternal Hx : VIIII Hx Para: II Hx # Term Pregnancies: 2 Risk Factors: No Care Ruptured Membranes: AROM Time of Rupture: 10:07 Fluids: Meconium Stained, Oligo Hydramnios Fluid Description: PER SURGEON - FLUIDS COLOR LOOKED LIKE- CHOCOLATE MILK - Delivery Presentation: Vertex Location: OR : Scheduled Placenta: Abnormal Delivery of Placenta Date: 07/04/19 Delivery of Placenta Time: 10:10 - Medications Type of Anesthesia:: Spinal - Infant Assess and Care Baby 1 Male Delivery of Date: 07/04/19 Delivery of Infant Time: 10:09 at 1 minute: 0 at 5 minutes: 0 at 10 minutes: 0 Preprinted Number On Band: N/A Medical Record Number: N/A Skin to Skin: No Infant Delivery Weight: 1,990 Infant Delivery Length: 16 in - Delivery Personnel Nursery RN: AVELINA PARSONS Nursery RN: MALATHI GAXIOLA RN: RALEIGH RAMESH MD: RALEIGH LUJAN
--- NOTE | 2019-07-04 11:31 | Operative Report ---
Operative Report DATE OF SURGERY: 07/04/19 PREOPERATIVE DIAGNOSIS: Intrauterine demise at approximately 30 weeks EGA. Type 2 diabetes prior to on insulin. Chronic hypertension. No care. Prior section x2 POSTOPERATIVE DIAGNOSIS: Same as above OPERATION: Repeat section SURGEON: RALEIGH LUJAN ANESTHESIA: Spinal TISSUE REMOVED OR ALTERED: Placenta and fetus COMPLICATIONS: NOne ESTIMATED BLOOD LOSS: 250 cc INTRAOPERATIVE FINDINGS: Uterus with scar tissue between anterior uterus, anterior abdominal wall and bladder. Bilateral fallopian tubes and ovaries appear normal. Male infant, non-viable, with some edema noted. Amniotic fluid is dark brown opaque PROCEDURE: IV fluids: per anesthesia record Urinary output: 250 cc Findings: Uterus with adhesions between anterior abdominal wall, bladder and anterior uterus. Normal appearing bilateral fallopian tubes and ovaries. Non- viable male infant. Position: To recovery room in stable condition Description of procedure: The patient was taken to the operating room and spinal anesthesia was admini stered and found to be adequate. She was then placed on the OR table in the supine position. Patient was prepped and draped in usual sterile fashion. Ancef 2 gms was given IV prior to the procedure for infection prophylaxis. Timeout was taken. A Pfannenstiel skin incision was then made approximately 3 cm above the pubic symphysis and carried down to level the rectus fascia. The rectus fascia was then nicked in the midline with a scalpel and the fascial incision was extended laterally with use of curved Celestin scissors. The rectus fascia was then grasped with 2 Kocker clamps elevated and the underlying rectus muscle was dissected off both bluntly and sharply. Scar tissue noted between fascia and muscle. Any bleeding controlled with cautery. The rectus muscles were then split in the midline and the peritoneum was entered. The peritoneal incision was then extended by manually stretching the peritoneum. The bladder was discected off the anterior utuerus and the bladder blade was positioned. A scalpel was then used in the lower uterine for the hysterotomy, slowly until amniotomy was obtained a large amount of brown opaque fluid was noted. The uterine incision was then manually stretched. The was noted to be in vertex postion -deep in the pelvis. Using a hand deep in pelvis, the head was elevated and brought to the hysterotomy incision. The head then delivered with minmal difficulty. The shoulders and the rest of the body followed immediately. The cord was cut clamped and the was handed off to the nurse awaiting. Non-viable. The placenta was manually delivered. Using a lap gauze the uterus was cleared of all clots and debris. The uterus was then exteriorized and a bladder blade was repositioned. The uterine incision was then closed with 0 Chromic suture in a running locked fashion. A second layer of the same suture was used in a running locked imbricated fashion. Small amount of bleeding on left side of uterus. A box stitch was placed and hemostasis obtained. The uterine incision was inspected again and noted to be hemostatic. Retractor was removed. The posterior aspect of the uterus was then inspected and anatomy was seen as above. The uterus was returned to its normal anatomic position within the abdominal cavity. Warm saline irrigation was used to clear all clots and debris from the abdomen. The uterine incision was inspected once more and noted to remain hemostatic. The bladder blade was removed and the peritoneum was re- approximated. The rectus muscles were then reapproximated and the rectus fascia was closed with a #1 PDS in a running fashion. The subcutaneous tissue was then inspected and any bleeding was controlled with Bovie electrocautery. The subcutaneous tissue was then closed with 2-0 Plain Gut suture in a running fashion. The skin was then closed with 3-0 Monocryl in a running subcuticular fashion. The skin incision was then clean dried and Dermabond was applied over the skin incision. All instrument sponge and needle counts were correct x3 for the procedure the patient tolerated the procedure well. She will proceed to recovery room in stable condition
[2019-07-04] MEDS ORDERED: DEXTROSE 40% GEL 15 GM TUBE PO PRN ×2 (11:38)
[2019-07-04] MEDS ORDERED: DEXTROSE 50%-WATER 25 GM/50 ML DISP.SYRIN IV PRN ×2 (11:38)
[2019-07-04] MEDS ORDERED: GLUCAGON,HUMAN RECOMB 1 MG INJ IM PRN (11:38)
[2019-07-04] MEDS: FENTANYL CITRATE INJ/PF 100 MCG/2 ML AMPUL ONE ×2 (12:15→12:30)
[2019-07-04] MEDS ORDERED: OXYTOCIN/NORMAL SALINE 20 UNIT/1,000 ML RTUINJ INJ PRN (13:27)
[2019-07-04] MEDS ORDERED: ONDANSETRON 4 MG TAB.RAPDIS PO PRN (13:30)
[2019-07-04] MEDS ORDERED: PROMETHAZINE HCL INJ 25 MG/1 ML VIAL IM PRN (13:30)
[2019-07-04] MEDS: DOCUSATE SODIUM 100 MG CAPSULE PO SCH (17:12)
[2019-07-04] MEDS: KETOROLAC TROMETHAMINE INJ/PF 30 MG/1 ML SDV IV SCH (17:12)
[2019-07-04] MEDS: INSULIN REG, HUMAN 100 UNIT/ML 3 ML VIAL (PYX) SUBCUT SCH (17:12)
[2019-07-04] MEDS: NITROFURANTOIN MONOHYD/M-CRYST 100 MG CAPSULE PO SCH (17:12)
[2019-07-04] MEDS: IBUPROFEN 800 MG TABLET PO SCH ×2 (17:24→23:33)
[2019-07-04] MEDS ORDERED: DOCUSATE SODIUM 100 MG CAPSULE PO SCH (18:00)
[2019-07-04] MEDS: INSULIN GLARGINE,HUM.REC.ANLOG 1,000 UNIT/10 ML VIAL SUBCUT SCH (19:09)
[2019-07-04] MEDS ORDERED: RINGERS SOLUTION,LACTATED 500 ML IV ONE ×2 (20:00→21:00)
[2019-07-04] MEDS ORDERED: RINGERS SOLUTION,LACTATED 1,000 ML IV PRN (22:16)
[2019-07-04] MEDS ORDERED: INSULIN REG, HUMAN 100 UNIT/ML 3 ML VIAL SUBCUT ONE (23:15)
[2019-07-05] MEDS ORDERED: NORMAL SALINE 1000 ML 1,000 ML IV ONE ×2 (00:15)
[2019-07-05] MEDS ORDERED: CEFAZOLIN 1 GM/D5W RTU 2 GM/100 ML RTUPB IV ONE (00:46)
[2019-07-05] MEDS: KETOROLAC TROMETHAMINE INJ/PF 30 MG/1 ML SDV IV SCH (01:06)
[2019-07-05] MEDS ORDERED: CEFAZOLIN 2 GM/D5W RTU 2 GM/50 ML RTUPB IV SCH (02:00)
[2019-07-05] MEDS ORDERED: CEFAZOLIN SODIUM 2 GM in DEXTROSE 5%-WATER 100 ML IV SCH ×2 (02:00→10:00)
[2019-07-05] MEDS: IBUPROFEN 800 MG TABLET PO SCH ×3 (02:28→13:00)
[2019-07-05] MEDS: INSULIN GLARGINE,HUM.REC.ANLOG 1,000 UNIT/10 ML VIAL SUBCUT SCH (05:32)
[2019-07-05 06:29] LABS: HEMATOCRIT 29.9 % (36.0-47.0); HEMOGLOBIN 10.1 g/dL (12.0-15.5); MEAN CORPUSCULAR HEMOGLOBIN 25.7 pg (27.0-33.4); MEAN CORPUSCULAR HGB CONC 33.7 g/dL (32.0-36.0); MEAN CORPUSCULAR VOLUME 76 fl (80-97); PLATELET COUNT 321 10^3/uL (150-450); RED BLOOD COUNT 3.93 10^6/uL (3.72-5.28); RED CELL DISTRIBUTION WIDTH 15.1 % (11.5-14.0); WHITE BLOOD COUNT 5.4 10^3/uL (4.0-10.5)
[2019-07-05] MEDS: INSULIN REG, HUMAN 100 UNIT/ML 3 ML VIAL (PYX) SUBCUT SCH (08:31)
--- NOTE | 2019-07-05 09:28 | PDOC PROGRESS REPORT ---
Subjective-OB Progress Note for:: 07/05/19 Subjective: + passing gas, pain controlled with current meds, bleeding slowing. denies needs Physical Exam (OB) Vital Signs: Temp Pulse Resp BP Pulse Ox 99.3 F 125 H 18 153/87 H 97 07/05/19 07:29 07/05/19 07:29 07/05/19 07:29 07/05/19 07:29 07/05/19 07:29 Intake & Output 07/04/19 07/05/19 07/06/19 06:59 06:59 06:59 Intake Total 2280 Output Total 1690 Balance 590 Weight 82.6 kg - PIH/Pre-Eclampsia Clonus: Negative Headache: Absent - Incision: Open, Well Approximated Closure Type: Surgical Glue Note: no s/s infection - Abdomen Description: Soft, Round Hernia Present: No Fundal Description: Firm, Midline Fundal Height: u/u - u/2 - Abdominal Distension: No distension - Extremities Lower extremities: Kacye's sign - neg Calf: Normal, Nontender Objective-Diagnostic Laboratory: 07/05/19 06:17 07/05/19 06:17 WBC 5.4 RBC 3.93 Hgb 10.1 L Hct 29.9 L MCV 76 L MCH 25.7 L MCHC 33.7 RDW 15.1 H Plt Count 321 Assessment and Plan(PN) - Assessment and Plan (1) Chronic hypertension Is this a current diagnosis for this admission?: Yes (2) demise, greater than 22 weeks, antepartum Is this a current diagnosis for this admission?: Yes (3) History of IUFD Is this a current diagnosis for this admission?: Yes (4) History of section, low transverse Is this a current diagnosis for this admission?: Yes (5) No care in current Is this a current diagnosis for this admission?: Yes (6) with poor obstetric history Is this a current diagnosis for this admission?: Yes (7) Type II diabetes mellitus Is this a current diagnosis for this admission?: Yes - Time Spent with Patient Time with patient: Less than 15 minutes - Disposition Anticipated Discharge: Home Within: within 48 hours - consulting hospitalist about uncontrolled diabetes and HTN (discussed with Dr Escalante)
[2019-07-05 09:30] LABS: ALBUMIN 2.6 g/dL (3.5-5.0); ALKALINE PHOSPHATASE 128 U/L (38-126); ANION GAP 7 (5-19); ASPARTATE AMINO TRANSFERASE 23 U/L (14-36); BILIRUBIN,TOTAL 0.6 mg/dL (0.2-1.3); BLOOD UREA NITROGEN 10 mg/dL (7-20); CALCIUM 8.4 mg/dL (8.4-10.2); CARBON DIOXIDE 16 mmol/L (22-30); CHLORIDE 110 mmol/L (98-107); GLUCOSE 209 mg/dL (75-110); POTASSIUM 4.4 mmol/L (3.6-5.0); TOTAL PROTEIN 5.4 g/dL (6.3-8.2); URIC ACID 3.7 mg/dL (2.5-6.2)
[2019-07-05] MEDS: NITROFURANTOIN MONOHYD/M-CRYST 100 MG CAPSULE PO SCH (09:31)
[2019-07-05] MEDS: DOCUSATE SODIUM 100 MG CAPSULE PO SCH (09:31)
[2019-07-05] MEDS ORDERED: PRENATAL VITAMIN W DHA CAPSULE PO SCH ×2 (10:00)
[2019-07-05] MEDS ORDERED: MEDROXYPROGESTERONE ACET INJ 150 MG/1 ML VIAL IM ONE (10:00)
--- NOTE | 2019-07-05 12:14 | PDOC CONSULTATION ---
Consultation Consult Date: 07/05/19 Attending physician:: NIVIA ALEXIS Provider Consulted: SAGE GOLDSTEIN Consult reason:: Diabetes management History of Present Illness Admission Date/PCP: 07/04/19 07:15 AUGUSTINA ARRIOLA MD Patient complains of: hyperglycemia History of Present Illness: LUCY LUNA is a 33 year old female with a history of diabetes mellitus type 2 and hypertension, presented to the hospital yesterday and underwent after experiencing intra-uterine demise at 30 weeks of gestation. Patient received spinal anesthesia. Patient has a history of poorly controlled diabetes mellitus and hemoglobin A1c was 11.2 and as such hospitalist service was consulted to help with optimization of diabetes regimen. Patient states that she takes Lantus 60 units in the morning and 50 units in the evening. Also states that she takes a pre-meal injection of something but does not know the name of what this medication was and does not think the medication was insulin. She also does not know the dose of this pre-meal injection that she uses for diabetes but states that she has been off the medication because she was told that she could not be on it while . Recently switched primary care provider. Her fasting blood sugar is usually around 90 but her predinner reading is usually in the 200s. Endorses compliance with her Lantus. Admits to polyuria and polydipsia. Past Medical History Cardiac Medical History: Reports: Hypertension Denies: Pulmonary Embolism, Heart Murmur Pulmonary Medical History: Denies: Asthma, Sleep Apnea, Tuberculosis Neurological Medical History: Denies: Seizures Endocrine Medical History: Reports: Diabetes Mellitus Type 2 Denies: Diabetes Mellitus Type 1, Hyperthyroidism, Hypothyroidism Malignancy Medical History: Denies: Breast Cancer, Cervical Cancer, Ovarian Cancer GI Medical History: Denies: Gastroesophageal Reflux Disease, Hiatal Hernia Musculoskeltal Medical History: Denies: Fibromyalgia Psychiatric Medical History: Denies: Bipolar Disorder, Depression, Post Traumatic Stress Disorder Hematology: Denies: Anemia, Hemophilia, Sickle Cell Disease Infectious Medical History: Denies: HIV Past Surgical History Past Surgical History: Reports: Section Social History Smoking Status: Former Smoker Frequency of Alcohol Use: None Hx Recreational Drug Use: No Drugs: None Hx Prescription Drug Abuse: No - Advance Directive Resuscitation Status: Full Code Family History Family History: DM, Hypertension Parental Family History Reviewed: Yes Children Family History Reviewed: NA Sibling(s) Family History Reviewed.: NA Medication/Allergy Home Medications: No.137/Iron/Folic Acd [ Vitamin Tablet] 1 tab PO DAILY 03/15/14 Insulin Glargine,Hum.rec.anlog [Lantus (Pyxis) Insulin 100 Unit/1 ml 10 ml] 50 unit SUBCUT Q12 #60 unit 11/13/16 Nifedipine [Procardia XL 30 mg Tablet] 60 mg PO DAILY #30 tab.er.24 11/13/16 Allergies/Adverse Reactions: No Known Allergies Allergy (Verified 05/09/17 13:10) Review of Systems Constitutional: ABSENT: chills, fever(s) Eyes: ABSENT: visual disturbances Nose, Mouth, and Throat: ABSENT: headache(s) Cardiovascular: ABSENT: chest pain Respiratory: ABSENT: cough, dyspnea Gastrointestinal: PRESENT: abdominal pain. ABSENT: nausea, vomiting Genitourinary: ABSENT: dysuria Integumentary: ABSENT: diaphoresis Neurological: ABSENT: confusion, dizziness Endocrine: PRESENT: polydipsia, polyuria Allergic/Immunologic: ABSENT: seasonal rhinorrhea Physical Exam Vital Signs: Temp Pulse Resp BP Pulse Ox 99.3 F 125 H 18 153/87 H 97 07/05/19 07:29 07/05/19 07:29 07/05/19 07:29 07/05/19 07:29 07/05/19 07:29 Intake & Output 07/04/19 07/05/19 07/06/19 06:59 06:59 06:59 Intake Total 2280 100 Output Total 1690 100 Balance 590 0 Weight 82.6 kg General appearance: PRESENT: no acute distress, cooperative Head exam: PRESENT: normocephalic Eye exam: PRESENT: EOMI Mouth exam: PRESENT: neck supple Neck exam: ABSENT: JVD Respiratory exam: PRESENT: clear to auscultation rocky, unlabored. ABSENT: tachypnea, wheezes Cardiovascular exam: PRESENT: +S1, +S2, tachycardia. ABSENT: irregular rhythm GI/Abdominal exam: PRESENT: soft, tenderness. ABSENT: ascites, normal bowel sounds Extremities exam: ABSENT: pedal edema Neurological exam: PRESENT: alert, awake, oriented to person, oriented to place, oriented to time Psychiatric exam: ABSENT: agitated, anxious Focused psych exam: ABSENT: pressured speech Skin exam: ABSENT: jaundice Results Laboratory Results: 07/05/19 06:17 07/05/19 08:43 07/05/19 07/05/19 06:17 08:43 WBC 5.4 RBC 3.93 Hgb 10.1 L Hct 29.9 L MCV 76 L MCH 25.7 L MCHC 33.7 RDW 15.1 H Plt Count 321 Sodium 132.9 L Potassium 4.4 Chloride 110 H Carbon Dioxide 16 L Anion Gap 7 BUN 10 Creatinine 0.46 L Est GFR ( Amer) > 60 Glucose 209 H Uric Acid 3.7 Calcium 8.4 Total Bilirubin 0.6 AST 23 Alkaline Phosphatase 128 H Total Protein 5.4 L Albumin 2.6 L Assessment and Plan - Diagnosis (1) Type II diabetes mellitus Qualifiers: Diabetes mellitus mcc insulin use: with mcc use Diabetes mellitus complication status: with hyperglycemia Qualified Code(s): E11.65 - Type 2 diabetes mellitus with hyperglycemia; Z79.4 - jail (current) use of insulin Is this a current diagnosis for this admission?: Yes Plan: Home regimen reported by patient: Lantus 60 units in the a.m. and 50 units nightly. Previously was taking a pre-meal injection [patient cannot specify name of this medication and states that he was not insulin] which she states was discontinued because she was told she cannot be on it during . Placed on sliding scale. Continue Accu-Cheks. I will cautiously resume Lantus at a lower dose than her home Lantus dose and m onitor response to blood sugars. Ultimately adequacy of control of insulin will have to be followed up by her primary care provider and patient will need to be compliant and reports daily log readings. I have given patient some diabetes education. (2) Chronic hypertension Is this a current diagnosis for this admission?: Yes Plan: Resume lisinopril 20 mg which patient states she takes at home.She also states that she takes another antihypertensive medication which I suspect is probably Procardia. - Time Time Spent with patient: 25-34 minutes
[2019-07-05 12:32] VITALS: BP 128/92
[2019-07-05] MEDS ORDERED: LISINOPRIL 10 MG TABLET PO ONE (13:00)
[2019-07-05] MEDS ORDERED: INSULIN GLARGINE,HUM.REC.ANLOG 1,000 UNIT/10 ML VIAL SUBCUT ONE (13:30)
[2019-07-05] MEDS ORDERED: INSULIN LISPRO 100 UNIT/ML 3 ML VIAL SUBCUT SCH (16:00)
[2019-07-05] MEDS ORDERED: INSULIN GLARGINE,HUM.REC.ANLOG 1,000 UNIT/10 ML VIAL SUBCUT SCH (18:00)
[2019-07-06] MEDS ORDERED: LISINOPRIL 10 MG TABLET PO SCH (10:00)
--- NOTE | 2019-07-31 12:45 | Left Against Medical Advice ---
Against Medical Advice Admission Date/Time: 07/04/19 07:15 Primary Care Provider: AUGUSTINA ARRIOLA MD Date of Patient Emigration: 07/05/19 - Diagnosis: (1) Chronic hypertension Is this a current diagnosis for this admission?: Yes (2) demise, greater than 22 weeks, antepartum Is this a current diagnosis for this admission?: Yes (3) History of IUFD Is this a current diagnosis for this admission?: Yes (4) History of section, low transverse Is this a current diagnosis for this admission?: Yes (5) No care in current Is this a current diagnosis for this admission?: Yes (6) with poor obstetric history Is this a current diagnosis for this admission?: Yes (7) Type II diabetes mellitus Is this a current diagnosis for this admission?: Yes - Summary: Summary: Please see Admission and Progress Notes as well. LUCY LUNA is a 33 F, who LEFT AGAINST MEDICAL ADVICE. The Patient was admitted on 07/04/19 07:15. underwent c/s for IUFD. was advised to stay for 2 nights. hospitalist consulted for CHTN and diabetes mgt. pt left AMA.
== END 2019-07-05 13:10 | disposition left against medical advice (07) | DRG 786 ==
LOC: 2N 07:15
PROVIDERS: ADMIT Obstetrics & Gynecology; ATTEND Obstetrics & Gynecology
PROC: 10D00Z1 Extraction of Products of Conception, Low, Open Approach (ICD-10-PCS; principal; 2019-07-04 09:15)
DX: O36.4XX0 Maternal care for intrauterine death, not applicable or unspecified (principal); O24.12 Pre-existing type 2 diabetes mellitus, in childbirth; O10.92 Unspecified pre-existing hypertension complicating childbirth; O41.03X0 Oligohydramnios, third trimester, not applicable or unspecified; O26.23 Pregnancy care for patient with recurrent pregnancy loss, third trimester; E11.65 Type 2 diabetes mellitus with hyperglycemia; Z3A.30 30 weeks gestation of pregnancy; Z37.1 Single stillbirth; Z79.4 Long term (current) use of insulin; Z87.891 Personal history of nicotine dependence; Z83.3 Family history of diabetes mellitus; Z82.49 Family history of ischemic heart disease and other diseases of the circulatory system; Z79.899 Other long term (current) drug therapy; Z53.29 Procedure and treatment not carried out because of patient's decision for other reasons
CPT/HCPCS: 1961; 36415; 80053; 80307; 81001; 82962; 83036; 83615; 84550; 85025; 85027; 86850; 86900; 86901; 87086; 87088; 87186; 88307; 94799; C1765; J0131; J0690; J1050; J1170; J1815; J1885; J2250; J2370; J2405; J2550; J2590; J3010; J3490; J7030; J7060; J7120; J8499

== ENCOUNTER → 2019-12-18 | Outpatient (CLI) | payer MEDICARE, MEDICAID ==
[2019-12-18 11:04] LABS: ALBUMIN 4.7 g/dL (3.5-5.0); ALKALINE PHOSPHATASE 103 U/L (38-126); ANION GAP 12 (5-19); ASPARTATE AMINO TRANSFERASE 20 U/L (14-36); BILIRUBIN,DIRECT 0.3 mg/dL (0.0-0.4); BILIRUBIN,TOTAL 0.6 mg/dL (0.2-1.3); BLOOD UREA NITROGEN 15 mg/dL (7-20); CALCIUM 9.8 mg/dL (8.4-10.2); CARBON DIOXIDE 25 mmol/L (22-30); CHLORIDE 98 mmol/L (98-107); CHOLESTEROL 202.73 mg/dL (0-200); GLUCOSE 210 mg/dL (75-110); POTASSIUM 5.1 mmol/L (3.6-5.0); TOTAL PROTEIN 8.2 g/dL (6.3-8.2); TRIGLYCERIDES 206 mg/dL (<150)
[2019-12-18 11:14] LABS: DIRECT LDL 136 mg/dL (<100)
[2019-12-18 11:17] LABS: VLDL CHOLESTEROL 41.2 mg/dL (10-31)
[2019-12-19 11:38] LABS: MICROALBUMIN URINE 40.6 ug/mL (Not Estab.)
== END ==
LOC: OD 09:04
PROVIDERS: ATTEND Family Medicine
DX: E11.40 Type 2 diabetes mellitus with diabetic neuropathy, unspecified (principal); E78.5 Hyperlipidemia, unspecified
CPT/HCPCS: 36415; 80053; 80061; 82043; 82570; 83036